=== PATIENT | male | born 1990 | race Caucasian/White ===

== ENCOUNTER 2019-05-03 15:05 | Emergency (ER) | payer MEDICAID ==
[~2019-05-03] VITALS: Ht 185.4 cm; Wt 102.1 kg
--- NOTE | 2019-05-03 22:04 | EKG ---
[facility] [address] [place], [place] [address] Signed Normal sinus rhythm with sinus arrhythmia Normal ECG No previous ECGs available Confirmed by RONALD GARDNER MD ([id number] on 05/03/2019 10:04:09 PM Electronically Signed By: RONALD GARDNER MD 05/03/19 2204 PATIENT NAME: PIERRE VERGARA Electrocardiogram DATE OF : 89 PHYSICIAN: RONALD GARDNER MD REPORT #: [id number] REPORT IS CONFIDENTIAL AND NOT TO BE RELEASED WITHOUT AUTHORIZATION
[2019-05-05] MEDS ORDERED: LORAZEPAM1 MG PO (22:23)
== END 2019-05-03 16:42 | disposition home or self-care (01) ==
LOC: ED 15:05
DX: F32.9 Major depressive disorder, single episode, unspecified (principal); F19.10 Other psychoactive substance abuse, uncomplicated
CPT/HCPCS: 80053; 80176; 81001; 84443; 85025; 93005; 93010; 99284-25; G0480